=== PATIENT | female | born 2000 | race Caucasian/White ===

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

== ENCOUNTER 2023-01-12 09:00 | Emergency (ER) | payer BC, MEDICAID ==
[~2023-01-12] VITALS: Ht 160 cm; Wt 54.5 kg
[2023-01-12 09:08] VITALS: TEMP 99
[2023-01-12 09:34] LABS: CLARITY,URINE SLIGHTLY CLOUDY (Clear); COLOR,URINE YELLOW (Yellow); GLUCOSE, URINE NEGATIVE (Neg); KETONES,URINE NEGATIVE (Neg); LEUKOCYTE ESTERASE ,URINE NEGATIVE (Neg); NITRITES, URINE NEGATIVE (Neg); OCCULT BLOOD,URINE LARGE (Neg); PROTEIN,URINE NEGATIVE (Neg); UROBILINOGEN,URINE 0.2 E.U/dL (0.2-1.0)
[2023-01-12 09:35] LABS: URINE HCG NEGATIVE (NEG)
[2023-01-12 09:47] LABS: UA COLLECTION TYPE CLN CATCH MIDSTREAM
[2023-01-12 09:48] LABS: SQUAMOUS EPITHELIAL CELL,UR MODERATE /LPF (FEW)
[2023-01-12 09:49] LABS: MUCUS STRANDS FEW /LPF (Neg)
[2023-01-12 09:50] LABS: WBC,URINE 0-4 /HPF (0-4)
[2023-01-12] MEDS ORDERED: IBUP-1986 PO (09:50)
[2023-01-12 09:51] LABS: RBC,URINE TNTC /HPF (0-2)
[2023-01-12 09:52] LABS: BACTERIA,URINE FEW /HPF (Neg)
[2023-01-12 10:28] VITALS: BP 112/68; PULSE 65; O2SAT 98
[2023-01-12] MEDS ORDERED: ketorolac trometh. 30mg/ml inj. IM ONE (10:55)
[2023-01-12 11:11] VITALS: RESP 17
== END 2023-01-12 11:17 | disposition home or self-care (01) ==
LOC: ER 09:00
DX: N94.6 Dysmenorrhea, unspecified (principal); N83.202 Unspecified ovarian cyst, left side; N83.201 Unspecified ovarian cyst, right side
CPT/HCPCS: 76856; 81001; 81025; 93976; 96372; 99285; J1885

== ENCOUNTER 2023-07-17 15:27 | Emergency (ER) | payer OTHER, MEDICAID ==
[~2023-07-17] VITALS: Ht 167.6 cm; Wt 54.5 kg
[~2023-07-17 15:27] MED LIST: IBUP-1986 PO
[2023-07-17 15:45] VITALS: BP 151/79; PULSE 103; RESP 18; O2SAT 99
[2023-07-17] MEDS ORDERED: CLIN300C97 PO (17:32)
[2023-07-17] MEDS ORDERED: PRED10TA23 PO (17:32)
[2023-07-17 18:05] VITALS: TEMP 97.8
== END 2023-07-17 18:07 | disposition home or self-care (01) ==
LOC: ER 15:27
DX: O26.891 Other specified pregnancy related conditions, first trimester (principal); R22.1 Localized swelling, mass and lump, neck; Z59.00 Homelessness unspecified; Z88.0 Allergy status to penicillin; Z88.1 Allergy status to other antibiotic agents
CPT/HCPCS: 76881; 99284